=== PATIENT | female | born 1960 | race Two or more races ===

== ENCOUNTER 2017-02-23 10:12 | Outpatient (CLI) | payer MEDICAID ==
[~2017-02-23 10:12] MED LIST: ALB0.5UD IH; BUDE10.23 IH; CETI10TA15 PO; EFAV1TAB4 PO; ESOM40CA PO; FERR325T28 PO; HYDR-569 PO; LEVA15HF4 IH; LOPI1TAB2 PO; MESA400T14 PO; PHEN-873 PO; PRAV10TA38 PO; PRED10TA PO; SPIIN IH
[2017-02-23 10:22] VITALS: BP 140/91
== END 2017-02-23 10:52 | disposition home or self-care (01) ==
LOC: ORTHO 10:12
PROVIDERS: ATTEND Nurse Practitioner Family
DX: S92.345A Nondisplaced fracture of fourth metatarsal bone, left foot, initial encounter for closed fracture (principal); X58.XXXA Exposure to other specified factors, initial encounter; Y93.89 Activity, other specified; Y92.018 Other place in single-family (private) house as the place of occurrence of the external cause

== ENCOUNTER 2017-03-16 09:43 | Outpatient (CLI) | payer MEDICAID ==
[2017-03-16 09:43] VITALS: BP 126/82
== END 2017-03-16 10:40 | disposition home or self-care (01) ==
LOC: ORTHO 09:43
PROVIDERS: ATTEND Nurse Practitioner Family
DX: S92.354G Nondisplaced fracture of fifth metatarsal bone, right foot, subsequent encounter for fracture with delayed healing (principal); B19.20 Unspecified viral hepatitis C without hepatic coma; J45.909 Unspecified asthma, uncomplicated; C83.70 Burkitt lymphoma, unspecified site; B20 Human immunodeficiency virus [HIV] disease; Z98.890 Other specified postprocedural states; X58.XXXD Exposure to other specified factors, subsequent encounter
CPT/HCPCS: 29405; 73630; A4590

== ENCOUNTER 2017-04-06 09:16 | Outpatient (CLI) | payer MEDICAID ==
[2017-04-06 09:15] VITALS: BP 126/83
== END 2017-04-06 10:10 | disposition home or self-care (01) ==
LOC: ORTHO 09:16
PROVIDERS: ATTEND Nurse Practitioner Family
DX: S92.354G Nondisplaced fracture of fifth metatarsal bone, right foot, subsequent encounter for fracture with delayed healing (principal); J45.909 Unspecified asthma, uncomplicated; B19.20 Unspecified viral hepatitis C without hepatic coma; X58.XXXD Exposure to other specified factors, subsequent encounter
CPT/HCPCS: 73630

== ENCOUNTER 2017-05-04 09:06 | Outpatient (CLI) | payer MEDICAID ==
[2017-05-04 09:22] VITALS: BP 132/93
== END 2017-05-04 09:50 | disposition home or self-care (01) ==
LOC: ORTHO 09:06
PROVIDERS: ATTEND Nurse Practitioner Family
DX: S92.354D Nondisplaced fracture of fifth metatarsal bone, right foot, subsequent encounter for fracture with routine healing (principal); B19.20 Unspecified viral hepatitis C without hepatic coma; J45.909 Unspecified asthma, uncomplicated; Z79.899 Other long term (current) drug therapy; X58.XXXD Exposure to other specified factors, subsequent encounter
CPT/HCPCS: 29540; 73630

== ENCOUNTER 2017-06-15 09:07 | Outpatient (CLI) | payer MEDICAID ==
[2017-06-15 09:15] VITALS: BP 151/85
== END 2017-06-15 09:40 | disposition home or self-care (01) ==
LOC: ORTHO 09:07
PROVIDERS: ATTEND Nurse Practitioner Family
DX: S92.354G Nondisplaced fracture of fifth metatarsal bone, right foot, subsequent encounter for fracture with delayed healing (principal); B19.20 Unspecified viral hepatitis C without hepatic coma; J45.909 Unspecified asthma, uncomplicated; X58.XXXD Exposure to other specified factors, subsequent encounter
CPT/HCPCS: 73630; 99212

== ENCOUNTER 2017-06-22 12:48 | Emergency (ER) | payer MEDICAID ==
[~2017-06-22] VITALS: Ht 157.5 cm; Wt 88.6 kg
[2017-06-22 12:57] VITALS: BP 146/90
[2017-06-22] MEDS ORDERED: HYDR-569 PO (13:58)
== END 2017-06-22 14:37 | disposition home or self-care (01) ==
LOC: ER 12:49
DX: S92.351A Displaced fracture of fifth metatarsal bone, right foot, initial encounter for closed fracture (principal); J45.909 Unspecified asthma, uncomplicated; Z86.19 Personal history of other infectious and parasitic diseases; Z79.899 Other long term (current) drug therapy; W01.0XXA Fall on same level from slipping, tripping and stumbling without subsequent striking against object, initial encounter; Y93.89 Activity, other specified; Y92.89 Other specified places as the place of occurrence of the external cause; Y99.8 Other external cause status
CPT/HCPCS: 73630; 99284; A6449

== ENCOUNTER 2017-06-27 11:15 | Outpatient (CLI) | payer MEDICAID ==
[2017-06-27 11:27] VITALS: BP 130/103
== END 2017-06-27 12:10 | disposition home or self-care (01) ==
LOC: ORTHO 11:15
PROVIDERS: ATTEND Nurse Practitioner Family
DX: S92.354D Nondisplaced fracture of fifth metatarsal bone, right foot, subsequent encounter for fracture with routine healing (principal); B19.20 Unspecified viral hepatitis C without hepatic coma; J45.909 Unspecified asthma, uncomplicated; X58.XXXD Exposure to other specified factors, subsequent encounter
CPT/HCPCS: 99212

== ENCOUNTER 2017-08-10 11:32 | Outpatient (CLI) | payer MEDICAID ==
[2017-08-10 11:41] VITALS: BP 135/76
== END 2017-08-10 12:25 | disposition home or self-care (01) ==
LOC: ORTHO 11:32
PROVIDERS: ATTEND Nurse Practitioner Family
DX: S92.351D Displaced fracture of fifth metatarsal bone, right foot, subsequent encounter for fracture with routine healing (principal); J45.909 Unspecified asthma, uncomplicated; B19.20 Unspecified viral hepatitis C without hepatic coma; X58.XXXD Exposure to other specified factors, subsequent encounter
CPT/HCPCS: 73630; 99212

== ENCOUNTER 2017-09-09 07:24 | Emergency (ER) | payer MEDICAID ==
[~2017-09-09] VITALS: Ht 157.5 cm; Wt 94.1 kg
[2017-09-09 07:29] VITALS: BP 167/109
[2017-09-09] MEDS ORDERED: AMOX-580 PO (08:01)
[2017-09-09] MEDS ORDERED: amox tr/potassium clavulanate 875/125mg TAB PO ONE (08:05)
== END 2017-09-09 08:39 | disposition home or self-care (01) ==
LOC: ER 07:24
DX: S81.851A Open bite, right lower leg, initial encounter (principal); W55.01XA Bitten by cat, initial encounter; Y93.89 Activity, other specified; Y92.89 Other specified places as the place of occurrence of the external cause; Y99.8 Other external cause status
CPT/HCPCS: 99283

== ENCOUNTER 2017-10-10 17:57 | Emergency (ER) | payer MEDICAID ==
[~2017-10-10 17:57] MED LIST changes: +AMOX-580 PO
[2017-10-11] MEDS ORDERED: CYCL-1 PO (11:05)
== END 2017-10-10 18:47 | disposition left against medical advice (07) ==
LOC: ER 17:58
DX: G58.8 Other specified mononeuropathies (principal); Z53.21 Procedure and treatment not carried out due to patient leaving prior to being seen by health care provider

== ENCOUNTER 2020-08-13 08:14 | Emergency (ER) | payer MEDICAID ==
[~2020-08-13] VITALS: Ht 157.5 cm; Wt 94.7 kg
[~2020-08-13 08:14] MED LIST changes: -AMOX-580 PO; +CYCL-1 PO; +HYDR-4383 PO; -HYDR-569 PO; +PHEN-786 PO; -PHEN-873 PO
[2020-08-13] MEDS ORDERED: ondansetron 4mg rapidly disintigrating tab PO ONE (08:30)
[2020-08-13 09:19] LABS: CLARITY,URINE CLEAR (Clear); COLOR,URINE YELLOW (Yellow); GLUCOSE, URINE NEGATIVE (Neg); KETONES,URINE NEGATIVE (Neg); LEUKOCYTE ESTERASE ,URINE NEGATIVE (Neg); NITRITES, URINE NEGATIVE (Neg); OCCULT BLOOD,URINE SMALL (Neg); PROTEIN,URINE NEGATIVE (Neg)
[2020-08-13 09:23] LABS: UA COLLECTION TYPE VOIDED
[2020-08-13 09:24] LABS: BACTERIA,URINE FEW /HPF (Neg); MUCUS STRANDS FEW /LPF (Neg); SQUAMOUS EPITHELIAL CELL,UR MANY /LPF (FEW); WBC,URINE 0-4 /HPF (0-4)
[2020-08-13] MEDS ORDERED: ketorolac tromethamine 15mg/ml inj. IV ONE (10:35)
[2020-08-13] MEDS ORDERED: normal saline 1000ML IV soln IVB ONE (10:35)
[2020-08-13 10:46] LABS: ALANINE AMINOTRANSFERASE 31 U/L (12-78); ALBUMIN 4.2 G/DL (3.4-5.0); ALBUMIN/GLOBULIN RATIO 1.2 (1.1-1.5); ALKALINE PHOSPHATASE 62 IU/L (46-116); ANION GAP 7 (8-16); ASPARTATE AMINO TRANSFERASE 21 U/L (10-37); BILIRUBIN,TOTAL 0.7 MG/DL (0.1-1.0); BLOOD UREA NITROGEN 20 MG/DL (7-18); BUN/CREATININE RATIO 23.5 (6.6-38.0); CALCIUM 8.7 MG/DL (8.5-10.1); CHLORIDE 103 MMOL/L (99-107); CREATININE 0.85 MG/DL (0.40-0.90); GLUCOSE 125 MG/DL (70-104); POTASSIUM 4.2 MMOL/L (3.5-5.1); SODIUM 139 MMOL/L (135-145); TOTAL CARBON DIOXIDE 28.7 MMOL/L (24-32); TOTAL PROTEIN 7.8 G/DL (6.4-8.2); eGFR 69 ML/MIN
[2020-08-13 10:49] LABS: BASOPHILS % (AUTO) 0.1 % (0-1); EOSINOPHILS % (AUTO) 0.6 % (0-6); HEMATOCRIT 41.8 % (35.0-45.0); HEMOGLOBIN 14.2 g/dl (12.0-16.0); LYMPHOCYTES # (AUTO) 0.5 X10'3 (1.1-4.8); LYMPHOCYTES % (AUTO) 5.9 % (21-51); MEAN CORPUSCULAR HEMOGLOBIN 31.4 PG (27.0-31.0); MEAN CORPUSCULAR HGB CONC 33.9 g/dL (33.0-36.5); MEAN CORPUSCULAR VOLUME 92.7 FL (78-98); MONOCYTES # (AUTO) 0.2 X10'3 (0-0.9); MONOCYTES % (AUTO) 2.9 % (2-12); NEUTROPHILS # (AUTO) 6.9 X10'3 (1.8-7.7); NEUTROPHILS % (AUTO) 90.5 % (42-75); PLATELET COUNT 240 X10'3 (140-440); RED BLOOD COUNT 4.51 X10'6 (4.20-5.60); RED CELL DISTRIBUTION WIDTH 13.9 % (11.5-14.5); WHITE BLOOD COUNT 7.6 X10'3 (4.5-11.0)
[2020-08-13 10:51] LABS: LIPASE < 50 U/L (73-393); TROPONIN I < 0.04 NG/ML (0.0-0.05)
[2020-08-13] MEDS ORDERED: ONDA4TAB6 PO (11:04)
[2020-08-13 11:05] VITALS: BP 126/70
== END 2020-08-13 11:34 | disposition home or self-care (01) ==
LOC: ER 08:14
DX: K29.00 Acute gastritis without bleeding (principal); J45.909 Unspecified asthma, uncomplicated; G89.29 Other chronic pain; M54.9 Dorsalgia, unspecified; Z79.899 Other long term (current) drug therapy
CPT/HCPCS: 36415; 80053; 81001; 83690; 84484; 85025; 87535; 96361; 96374; 99283; J1885; J7030

== ENCOUNTER 2020-12-25 19:36 | Emergency (ER) | payer MEDICAID ==
[~2020-12-25] VITALS: Ht 157.5 cm; Wt 94.0 kg
[~2020-12-25 19:36] MED LIST changes: +ONDA4TAB6 PO
[2020-12-25 19:41] VITALS: BP 113/89
[2020-12-25] MEDS ORDERED: VALA10002 PO (20:48)
[2020-12-25] MEDS ORDERED: DIPH-423 PO (20:48)
[2020-12-25] MEDS ORDERED: PRED20TA PO (20:48)
[2020-12-25] MEDS ORDERED: GABA300C PO (20:48)
[2020-12-25] MEDS ORDERED: diphenhydrAMINE 25mg capsule PO ONE (20:50)
[2020-12-25] MEDS ORDERED: gabapentin 300mg capsule PO ONE (20:50)
[2020-12-25] MEDS ORDERED: dexamethasone 4mg tablet PO ONE (20:50)
[2020-12-25] MEDS ORDERED: valacyclovir 500mg tablet PO SCH (20:50)
[2020-12-25] MEDS ORDERED: valacyclovir 500mg tablet PO ONE (20:50)
== END 2020-12-25 21:12 | disposition home or self-care (01) ==
LOC: ER 19:37
DX: B02.9 Zoster without complications (principal); J45.909 Unspecified asthma, uncomplicated; G89.29 Other chronic pain; M54.9 Dorsalgia, unspecified; Z79.899 Other long term (current) drug therapy
CPT/HCPCS: 99284; Q0163

== ENCOUNTER 2021-03-26 14:14 | Emergency (ER) | payer MEDICAID ==
[~2021-03-26] VITALS: Ht 157.5 cm; Wt 94.1 kg
[~2021-03-26 14:14] MED LIST changes: +DIPH-423 PO; +GABA300C PO; +VALA10002 PO
[2021-03-26 15:04] VITALS: BP 149/85
[2021-03-26] MEDS ORDERED: TETanus/Pertussis (Acell)/Diphther VAC/PF (Tdap-Adult) 0.5ml syringe IMVAC ONE (15:10)
== END 2021-03-26 15:44 | disposition home or self-care (01) ==
LOC: ER 14:15
DX: S91.332A Puncture wound without foreign body, left foot, initial encounter (principal); J45.909 Unspecified asthma, uncomplicated; G89.29 Other chronic pain; Z21 Asymptomatic human immunodeficiency virus [HIV] infection status; Z87.19 Personal history of other diseases of the digestive system; Z87.440 Personal history of urinary (tract) infections; Z79.2 Long term (current) use of antibiotics; Z72.89 Other problems related to lifestyle; Z79.899 Other long term (current) drug therapy; W22.8XXA Striking against or struck by other objects, initial encounter; Y93.01 Activity, walking, marching and hiking; Y92.89 Other specified places as the place of occurrence of the external cause; Y99.8 Other external cause status
CPT/HCPCS: 90471; 90715; 99283

== ENCOUNTER 2022-04-28 00:50 | Emergency (ER) | payer MEDICAID ==
[~2022-04-28] VITALS: Ht 157.5 cm; Wt 93.2 kg
[2022-04-28 00:53] VITALS: BP 149/92
[2022-04-28] MEDS ORDERED: methylnaltrexone br 12mg/0.6ml inj***SubQ only SQ ONE (01:50)
[2022-04-28] MEDS ORDERED: lactulose 20gm/30ml cup PO ONE (01:50)
[2022-04-28 02:12] LABS: BASOPHILS % (AUTO) 0.4 % (0-1); EOSINOPHILS # (AUTO) 0.1 X10'3 (0-0.9); EOSINOPHILS % (AUTO) 1.7 % (0-6); HEMATOCRIT 31.4 % (35.0-45.0); HEMOGLOBIN 10.3 g/dl (12.0-16.0); LYMPHOCYTES # (AUTO) 1.4 X10'3 (1.1-4.8); LYMPHOCYTES % (AUTO) 18.7 % (21-51); MEAN CORPUSCULAR HEMOGLOBIN 28.4 PG (27.0-31.0); MEAN CORPUSCULAR HGB CONC 32.7 g/dL (33.0-36.5); MEAN CORPUSCULAR VOLUME 87.1 FL (78-98); MEAN PLATELET VOLUME 6.3 FL (7.4-10.4); MONOCYTES # (AUTO) 0.5 X10'3 (0-0.9); MONOCYTES % (AUTO) 6.6 % (2-12); NEUTROPHILS # (AUTO) 5.3 X10'3 (1.8-7.7); NEUTROPHILS % (AUTO) 72.6 % (42-75); PLATELET COUNT 342 X10'3 (140-440); RED BLOOD COUNT 3.61 X10'6 (4.20-5.60); RED CELL DISTRIBUTION WIDTH 14.9 % (11.5-14.5); WHITE BLOOD COUNT 7.3 X10'3 (4.5-11.0)
[2022-04-28 02:22] LABS: ALANINE AMINOTRANSFERASE 25 U/L (12-78); ALBUMIN 3.8 G/DL (3.4-5.0); ALBUMIN/GLOBULIN RATIO 1.2 (1.1-1.5); ALKALINE PHOSPHATASE 175 IU/L (46-116); ANION GAP 9 (8-16); ASPARTATE AMINO TRANSFERASE 18 U/L (10-37); BILIRUBIN,TOTAL 0.4 MG/DL (0.1-1.0); BLOOD UREA NITROGEN 20 MG/DL (7-18); BUN/CREATININE RATIO 26.3 (6.6-38.0); CHLORIDE 102 MMOL/L (99-107); CREATININE 0.76 MG/DL (0.40-0.90); GLUCOSE 123 MG/DL (70-104); POTASSIUM 4.1 MMOL/L (3.5-5.1); SODIUM 139 MMOL/L (135-145); TOTAL CARBON DIOXIDE 28.2 MMOL/L (24-32); TOTAL PROTEIN 7.1 G/DL (6.4-8.2); eGFR 78 ML/MIN
[2022-04-28] MEDS ORDERED: polyethylene glycol 3350 17gm powd pack PO SCH (03:50)
== END 2022-04-28 05:53 | disposition home or self-care (01) ==
LOC: ER 00:51
DX: K59.03 Drug induced constipation (principal); J45.909 Unspecified asthma, uncomplicated; G89.29 Other chronic pain; M54.9 Dorsalgia, unspecified; Z79.899 Other long term (current) drug therapy; Z79.1 Long term (current) use of non-steroidal anti-inflammatories (NSAID); Z79.2 Long term (current) use of antibiotics; Z90.49 Acquired absence of other specified parts of digestive tract
CPT/HCPCS: 36415; 74018; 80053; 85025; 96372; 99284; J2212

== ENCOUNTER 2022-05-30 23:18 | Emergency (ER) | payer MEDICAID ==
[~2022-05-30] VITALS: Ht 157.5 cm; Wt 92.7 kg
[2022-05-30 23:28] VITALS: BP 187/94
== END 2022-05-31 03:34 | disposition left against medical advice (07) ==
LOC: ER 23:19
DX: R21 Rash and other nonspecific skin eruption (principal); Z53.21 Procedure and treatment not carried out due to patient leaving prior to being seen by health care provider
CPT/HCPCS: 99281

== ENCOUNTER 2024-07-14 21:42 | Emergency (ER) | payer MEDICAID ==
[~2024-07-14] VITALS: Ht 157.5 cm; Wt 90.0 kg
[~2024-07-14 21:42] MED LIST changes: +LOPI1TAB PO; -LOPI1TAB2 PO
--- NOTE | 2024-07-14 21:56 | ELECTROCARDIOGRAPH REPORT ---
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 Iona Riley Measurements Intervals [place] Rate: 79 P: 58 [place]: 150 QRS: 2 QRSD: 104 T: 71 QT: 396 QTc: 455 Interpretive Statements Sinus rhythm Low voltage, precordial leads Abnormal R-wave progression, early transition Electronically Signed On 07-14-2024 23:36:[address] Iona Riley Please click the below link to view image of tracing.
[2024-07-14 22:09] LABS: BASOPHILS % (AUTO) 0.6 % (0-1); EOSINOPHILS # (AUTO) 0.1 X10'3 (0-0.9); HEMATOCRIT 35.6 % (35.0-45.0); LYMPHOCYTES # (AUTO) 2.3 X10'3 (1.1-4.8); LYMPHOCYTES % (AUTO) 32.2 % (21-51); MEAN CORPUSCULAR HEMOGLOBIN 28.7 PG (27.0-31.0); MEAN CORPUSCULAR HGB CONC 33.7 g/dL (33.0-36.5); MEAN CORPUSCULAR VOLUME 85.1 FL (78-98); MEAN PLATELET VOLUME 6.9 FL (7.4-10.4); MONOCYTES # (AUTO) 0.4 X10'3 (0-0.9); MONOCYTES % (AUTO) 5.7 % (2-12); NEUTROPHILS # (AUTO) 4.2 X10'3 (1.8-7.7); NEUTROPHILS % (AUTO) 59.5 % (42-75); PLATELET COUNT 262 X10'3 (140-440); RED BLOOD COUNT 4.19 X10'6 (4.20-5.60); RED CELL DISTRIBUTION WIDTH 15.2 % (11.5-14.5)
--- NOTE | 2024-07-14 22:20 | RADIOLOGY REPORT ---
CHEST RADIOGRAPH Indication: CP Technique: Single frontal view of the chest was obtained Comparison: None FINDINGS: Lines and Tubes: Pedicle screws and rods in place in the lower thoracic and lumbar spine. Lungs: No focal consolidation. Pleura: No effusion. No pneumothorax. Cardiomediastinal contours: Unremarkable Bones: No acute osseous abnormality. IMPRESSION: 1. No acute cardiopulmonary disease.
[2024-07-14 22:31] LABS: ALANINE AMINOTRANSFERASE 25 U/L (12-78); ALBUMIN/GLOBULIN RATIO 1.3 (1.1-1.5); ALKALINE PHOSPHATASE 85 IU/L (46-116); ANION GAP 4 (8-16); ASPARTATE AMINO TRANSFERASE 14 U/L (10-37); BILIRUBIN,TOTAL 0.4 MG/DL (0.1-1.0); BLOOD UREA NITROGEN 21 MG/DL (7-18); BUN/CREATININE RATIO 25.6 (10.0-20.0); CALCIUM 8.9 MG/DL (8.5-10.1); CHLORIDE 107 MMOL/L (99-107); CREATININE 0.82 MG/DL (0.40-0.90); GLUCOSE 96 MG/DL (70-104); PRO BRAIN NATRIURETIC PEPTIDE 34 PG/ML (0-125); SODIUM 141 MMOL/L (135-145); TOTAL CARBON DIOXIDE 30.4 MMOL/L (24-32); TOTAL PROTEIN 7.2 G/DL (6.4-8.2); eCRCL 56 ML/MIN; eGFR 71 ML/MIN
--- NOTE | 2024-07-15 00:03 | Physician Documentation ---
History of Present Illness ~ Chief Complaint: Chest Pain Stated Complaint: CHEST PAIN Time Seen by MD: 23:36 OK to notify your PCP?: Yes Primary Medical Doctor: LADI Source: patient Mode of Arrival: POV Exam Limitations: no limitations HPI 63 year old female presents to the emergency department for complaints of left sided chest pain that happened at 1800. Patient states that the pain began at rest an lasted one minute. She states it was sharp and traveled through to her back and down her arm. She then took her blood pressure and noted that it was high.While getting ready for bed the pain happened again and lasted 30 seconds. She denies any diaphoresis, dizziness, nausea, vomiting, diarrhea, or palpitations. She states that she is currently taking Ozempic and she is on a dose of 2.4. Of note patient had a normal ecchocardiogram and stress test along with a CT Angio of the chest that performed in 2011. Medication Reconciliation Allergies: Coded Allergies: No Known Allergies (Unverified , 04/28/22) Scheduled Budesonide/Formoterol Fumarate (Symbicort 160-4.5 Mcg Inhaler), 1 PUFF IH BID, (Reported) Cetirizine HCl (Cetirizine HCl), 1 TAB PO DAILY Efavirenz/Emtricitab/Tenofovir (Atripla Tablet), 1 EACH PO HS, (Reported) Esomeprazole Mag Trihydrate* (Nexium*), 40 MG PO DAILY, (Reported) Ferrous Sulfate* (Ferrous Sulfate*), 325 MG PO TID, (Reported) Gabapentin (Neurontin), 1 CAP PO Q8H Hydrocodone/Acetaminophen (Kelso 5-325 Tablet), 1 TAB PO TID PRN Hydrocodone/Acetaminophen (Kelso 5-325 Tablet), 1 TAB PO Q8H Levalbuterol Tartrate* (Xopenex Inhaler*), 2 PUFF IH Q6H, (Reported) Lopinavir/Ritonavir (Kaletra 200-50 Mg Tablet), 2 EACH PO BID, (Reported) Mesalamine (ASACOL tablet), 800 MG PO TID, (Reported) Ondansetron Hcl (Zofran), 1 TAB PO Q6H Pravastatin Sodium* (Pravachol*), 20 MG PO DAILY, (Reported) Prednisone (Prednisone), 10 MG PO as directed Tiotropium Redig (SPIRIVA inhaler), 18 MCG IH DAILY, (Reported) Valacyclovir HCl (Valtrex), 1 TAB PO Q8H Scheduled PRN Albuterol Sulfate Nebs* (Proventil Nebs*), 2.5 MG IH TID PRN, (Reported) Cyclobenzaprine* (Cyclobenzaprine*), 1 TABLET PO Q8H PRN for muscle spasms Diphenhydramine Hcl (Benadryl), 25 MG PO Q6H PRN ITCHING PRN for itching Phenazopyridine Hcl (Pyridium tablet), 2 TAB PO Q8H PRN for pain Past Medical History Past Medical History: Hypertension, Asthma, GI Bleed, Hepatitis C, UTI, Chronic Back Pain, HIV, Lymphoma Past Surgical History: orthopedic surgeries Other Past Surgical History: back surgery Alcohol Use: Occasionally Drug Use: none Lives with: Spouse Lives In: Home Occupation: retired Review of Systems All Other Systems at this time: Reviewed and Negative ROS As stated above in the HPI, otherwise all systems are reviewed and negative. Physical Exam Vital Signs: RN Vital Signs have been reviewed: Yes, Temperature: 97.5, Source: Temporal, Heart Rate: 76, Respiratory Rate: 16, BP: 134/95, Pulse Oximetry: 99, Weight: 90.000 Oxygen Flow Rate: 0 Pulse Oximetry Reflects: adequate oxygenation Physical Exam General: The patient is well developed, well nourished, nontoxic appearing and is in no acute distress. Skin: Ord, warm and dry with no rashes. HEENT: Head was normocephalic and atraumatic. Eyes - pupils equal, round, reactive to light and accommodation. Extraocular movements were intact. Conjunctivae were nonicteric. Ears - bilateral tympanic membranes were normal. The mouth and oropharynx were clear with moist mucous membranes. There were no pharyngeal exudates or erythema. Neck: Supple and nontender. There was no jugular venous distention, lymphadenopathy, thyromegaly or masses. Chest: Clear to auscultation bilaterally without wheezes, rales or rhonchi. No accessory muscle use. No dullness to percussion. Heart: Rate regular and rhythmic. S1, S2. No murmurs. Palpation of the chest wall was normal. No rubs or thrills. Abdomen: Soft, nontender and nondistended. Positive bowel sounds. No guarding or rebound. No hepatosplenomegaly or palpable masses. Extremities: No cyanosis, clubbing or edema. The patient moves all extremities. Pulses were equal and symmetric. Neurologic: Cranial nerves II-XII were intact. Sensation was intact to light touch throughout. Motor strength was 5/5 in all four extremities. Deep tendon reflexes were intact in both upper and lower extremities. Psychologic: The patient was oriented to person, place and time. The patient demonstrated appropriate judgement and insight. Progress Results/Orders Reviewed/noted all lab results: Yes Results/Orders Orders - LUIS ALBERTO ELLIS MD Chest,Single View (07/14/24 22:00) Monitor (07/14/24 21:55) Saline Lock (07/14/24 21:55) Oxygen (07/14/24 21:55) Electrocardiogram (07/14/24 21:55) Completed Orders - LUIS ALBERTO ELLIS MD Chest,Single View (07/14/24 22:00) Cbc/Diff (07/14/24 21:55) PBNP (07/14/24 21:55) Electrocardiogram (07/14/24 21:55) CMP (07/14/24 21:55) Hs Troponin I W Calculations (07/14/24 21:55) Hs Troponin I W Calculations (07/14/24 23:55) Hs Troponin I W Calculations (07/15/24 00:55) Lipase (07/15/24 00:13) Lipase (07/14/24 21:52) Vital Signs 07/14/24 07/14/24 07/14/24 07/15/24 21:56 22:42 22:47 02:16 Temp 97.5 Pulse 80 76 77 Resp 16 18 16 16 B/P (MAP) 144/84 134/95 (108) 159/94 (115) Pulse Ox 98 99 99 O2 Flow Rate 0 0 0 07/15/24 02:32 Temp 97.8 Pulse 70 Resp 16 B/P (MAP) 138/80 Pulse Ox 99 Laboratory Tests Test 07/14/24 21:52 07/15/24 00:05 07/15/24 01:00 White Blood Count 7.0 Red Blood Count 4.19 L Hemoglobin 12.0 Hematocrit 35.6 Mean Corpuscular Volume 85.1 Mean Corpuscular Hemoglobin 28.7 Mean Corpuscular Hemoglobin Concent 33.7 Red Cell Distribution Width 15.2 H Platelet Count 262 Mean Platelet Volume 6.9 L Neutrophils (%) (Auto) 59.5 Lymphocytes (%) (Auto) 32.2 Monocytes (%) (Auto) 5.7 Eosinophils (%) (Auto) 2.0 Basophils (%) (Auto) 0.6 Neutrophils # (Auto) 4.2 Lymphocytes # (Auto) 2.3 Monocytes # (Auto) 0.4 Eosinophils # (Auto) 0.1 Basophils # (Auto) 0.0 CBC Comment Sodium Level 141 Potassium Level 4.0 Chloride Level 107 Carbon Dioxide Level 30.4 Anion Gap 4 L Blood Urea Nitrogen 21 H Creatinine 0.82 Estimated GFR/1.73 m2 71 BUN/Creatinine Ratio 25.6 H Glucose Level 96 Calcium Level 8.9 Total Bilirubin 0.4 Aspartate Amino Transf (AST/SGOT) 14 Alanine Aminotransferase (ALT/SGPT) 25 Alkaline Phosphatase 85 Troponin I High Sensitivity 4 7 7 Pro-B-Type Natriuretic Peptide 34 Total Protein 7.2 Albumin 4.0 Globulin 3.2 Albumin/Globulin Ratio 1.3 Lipase 38 35 Chemistry Comments Troponin I High Sens Percent Delta 75 0 Troponin I Hi Sens Absolute Change 3 0 Re-Evaluation Re-Evaluation : Re-Evaluation: Improved Progress Patient was seen and examined. Patient was given reassurance. Patient was placed on a monitor laboratory work was obtained. Chemistry is within normal limits LFTs within normal limits troponins x3 within normal limits. Lipase within normal limits LFTs within normal limits, CBC within normal limit no leukocytosis. After discussing the case with the patient patient is taking Ozempic and recently went up in her dose most likely having abdominal pain secondary to that. He was encouraged to drop down to the dose that she was just prior. Since she has normal labs there was no signs of pancreatitis at this time. But escalating to a higher dose she was doing it at a fast pace and should be done more gradually. Patient was then given reassurance and discharged home. As far as her chest pain LFTs are within normal limits EKG reassuring unlikely to be cardiac in nature. Infectious causes are also unlikely. With normal LFTs and no postprandial pain cholelithiasis is unlikely Continuous monitor worker interpretation shows normal sinus rhythm heart rate 80s, no ectopy, normal, my interpretation. Pulse oximetry monitor interpretation shows normal oxygenation 98% room air, normal, my interpretation. 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 Luis Alberto Ellis Measurements Intervals [place] Rate: 79 P: 58 [place]: 150 QRS: 2 QRSD: 104 T: 71 QT: 396 QTc: 455 Interpretive Statements Sinus rhythm Low voltage, precordial leads Abnormal R-wave progression, early transition Electronically Signed On 07-14-2024 23:36:[address] Luis Alberto Ellis Please click the below link to view image of tracing. EKG Date and Time:07/14/242147 Electronically Signed by: LUIS ALBERTO ELLIS MD Date and Time: 07/14/242335 Chest X-Ray : Additional Comments CHEST RADIOGRAPH Indication: CP Technique: Single frontal view of the chest was obtained Comparison: None FINDINGS: Lines and Tubes: Pedicle screws and rods in place in the lower thoracic and lumbar spine. Lungs: No focal consolidation. Pleura: No effusion. No pneumothorax. Cardiomediastinal contours: Unremarkable Bones: No acute osseous abnormality. IMPRESSION: 1. No acute cardiopulmonary disease. Electronically Signed by:MARLEE METCALF Jr. DO Date & Time: 07/14/242217 Heart Score: Heart Score Response (Comments) Value History Slightly Suspicious 0 EKG Normal 0 Age 45-64 1 Risk Factors 1 or 2 risk factors 1 Troponin Normal limit 0 Total 2 Medical Decision Making Additional info obtained from: old records Differential Dx:Considerations: Include: angina, aortic dissection, chest wall pain, cholelithiasis, CHF, costochondritis, gastritis, myocardial infarction, pericarditis, pleuritis, pancreatitis, other Departure Time of Disposition: 00:19 Disposition: 01 HOME / SELF CARE / HOMELESS Impression: Primary Impression: Abdominal pain Qualified Codes: R10.13 - Epigastric pain Additional Impressions: Possible medication reaction Atypical chest pain Condition: Stable Discharge Instructions: Nonspecific Chest Pain, Adult Additional Instructions: Julia is advised to follow up with a galley boy following todays visit. Referrals: NO PRIMARY CARE PROVIDER (PCP) CARLINE BARRON MD Education Educated: Patient, Family Educated regarding: diagnosis, treatment, need for follow up Signature Scribe Signature: Scribed for Luis Alberto Ellis MD by Aditya Perkins . 07/15/24 00:19 Attestation: The note accurately reflects work and decisions made by me.Luis Alberto Ellis MD 07/18/24 09:15 LUIS ALBERTO ELLIS MD Jul 15, 2024 00:03 ADITYA VERDUGO Jul 15, 2024 00:19
[2024-07-15 00:23] LABS: LIPASE 38 U/L (16-77)
[2024-07-15 02:32] VITALS: BP 138/80; PULSE 70; RESP 16; TEMP 97.8; O2SAT 99
== END 2024-07-15 02:37 | disposition home or self-care (01) ==
LOC: ER 21:43
DX: R07.89 Other chest pain (principal); R10.84 Generalized abdominal pain; I10 Essential (primary) hypertension; J45.909 Unspecified asthma, uncomplicated; G89.29 Other chronic pain; M54.9 Dorsalgia, unspecified; Z79.899 Other long term (current) drug therapy; Z98.890 Other specified postprocedural states; Z72.89 Other problems related to lifestyle
CPT/HCPCS: 36415; 71045; 80053; 83690; 83880; 84484; 85025; 93005; 99285